=== PATIENT | female | born 1975 | race Caucasian/White ===

== ENCOUNTER 2023-04-12 12:01 | Outpatient (CLI) | payer MEDICARE, SELFPAY ==
[2023-04-12] VITALS (7 sets, daily range): BP systolic 100–131; BP diastolic 64–87; PULSE 55–102; RESP 18; TEMP 36.7; O2SAT 96–99; BMI 29.7
--- NOTE | 2023-04-12 12:02 | CT_ITS ---
APPROVED REPORT Manager Video: CLINICAL INDICATION Chest Pain TECHNIQUE Image Acquisition: A 128 slice MDCT scanner (SeamBLiSSa View) was used for data acquisition. A noncontrast coronary calcium scan was performed. A CT attenuation threshold of 130 Hounsfield units (HU) was used for the detection of calcium in contiguous voxels of 1 sq mm in area to be counted as individual lesions. Bolus tracking in the ascending aorta with a threshold of 180 HU was performed. Immediately afterwards, ECG synchronized cardiac CT was then performed from the cardiac base to apex using retrospective gating with ECG tube current modulation. A total of 85 mL of Isovue 370 mg/mL contrast medium was administered at 5 mL/sec followed by a saline flush using a biphasic injection protocol. A tube voltage of 120 KVp was used. The patient received the following medications prior to the cardiac CT. 75 mg of oral metoprolol 15 mg of oral ivabradine 0.8 mg of sublingual nitroglycerin The average heart rate at the time of acquisition was 64 bpm and regular. Image Reconstruction Transaxial images were reconstructed at 0.67 mm slide thickness. Data was reviewed interactively on an advanced workstation capable of 2 and 3-dimensional displays in all conventional reconstruction formats, including multiplanar reformations, maximum intensity projections, curved multiplanar reformations, and volume rendered reconstructions. When applicable, selected routine images describing the relevant coronary anatomy and pathology were saved and sent to PACS. Complications None Technical Quality Overall image quality was good. Coronary artery opacification was adequate. Total DLP (Dose-Length Product) is 1484.5 mGy-cm. The reported value represents the total of one or more individual components during the CT acquisition of this date and at this time, and as such, the same value may appear in more than one CT report depending on the interpreting/reporting physicians. COMPARISON None FINDINGS CT Coronary Calcium Scoring LMA (Left Main Artery) = 0 LAD (Left Anterior Descending) = 0 LCX (Left Coronary Circumflex) = 0 RCA (Right Coronary Artery) = 0 Total Calcium Score = 0 using the AJ-130 method. The interpretation of the calcium heart score is based on the following continuum*: 0 = no calcified plaque detected (risk of coronary artery disease is very low ??? less than 5%) 1-10 = calcium detected in extremely minimal levels (risk of coronary diseases is still low ??? less than 10%) 11-100 = mild levels of plaque detected with certainty (mild or minimal narrowing of heart arteries is likely) 101-400 = definite,at least moderate levels of plaque detected (relatively high risk of a heart attack within 3-5 years) >401-999 = extensive levels of plaque detected (high risk of heart attack, high levels of vascular disease are present, high likelihood of at least one significant coronary narrowing) *The calcium heart score quantifies the burden of coronary calcification/plaque in the coronary arteries. The calcium heart score is not able to evaluate the presence or burden of non-calcified (i.e. soft) plaque. There is no identifiable calcification in the aortic valve, mitral annulus or mitral valve, pericardium, or myocardium. Coronary CT Angiography The coronary arterial system is right dominant. Quantitative Stenosis Grading: Left Main (LM): The left main originates normally from the left sinus of Valsalva. The LM bifurcates into the left anterior descending artery and left circumflex artery. The LM is patent with no evidence of atherosclerosis. Left Anterior Descending (LAD) and Diagonal Branches: The LAD gives off 3 diagonal branches. The LAD and its branches are patent with no evidence of atherosclerosis. There is no evidence of LAD bridge. Left Circumflex (LCX) and Obtuse Marginals (OM): The LCX gives off 2 Obtuse Marginal (OM) branches. The LCX and its branches are patent with no evidence of atherosclerosis. Right Coronary Artery (RCA): The RCA originates normally from the right sinus of Valsalva. The RCA gives off a posterior descending artery (PDA) and posterolateral (PL) branches. The RCA and its branches are patent with no evidence of atherosclerosis. Non-Coronary Cardiac Findings: Analysis of the left ventricular (LV) structure and function was performed after 3-D reconstruction of the LV from axial images, with user-corrected automatic contouring for assessment of LV volumes and user-defined reconstruction from oblique planes for measurement of 3-D cardiac structure and function. LVEDV: 179 mL LVESV: 84 mL SV: 95 mL LVEF: 53% -The left ventricle is normal in size with normal left ventricular systolic function. -There is no left atrial appendage filling defect. Two right pulmonary veins and two left pulmonary veins drain normally into the left atrium. -No pericardial thickening or calcification. -Central and branch pulmonary arteries in the [id number] are unremarkable. -Thoracic aorta within the visualized thoracic aortic-branches in the [id number] is unremarkable. Extracardiac Structures No significant extra-cardiac findings. Note, however, that this study is focused on the cardiac findings. IMPRESSION -Absence of coronary calcification with an Agatston score = 0 using the AJ-130 method. -No evidence of significant flow-limiting atherosclerosis of the coronary arteries. -CAD-RADS 0. Management recommendations per ACC/AHA guidelines*, as clinically appropriate. *Recommendations: CAD RADS 0: Reassurance. Consider non-atherosclerotic causes of chest pain. CAD RADS 1: Consider non-atherosclerotic causes of chest pain. Consider preventive therapy and risk factor modification. CAD RADS 2: Consider non-atherosclerotic causes of chest pain. Consider preventive therapy and risk factor modification, particularly for patients with nonobstructive plaque in multiple segments. CAD RADS 3: Consider further functional testing. Consider symptom-guided anti-ischemic and preventive pharmacotherapy as well as risk factor modification per published guideline statements. CAD RADS 4A: Consider further functional testing or invasive coronary angiography with revascularization per published guideline statements. Consider symptom-guided anti-ischemic and preventive pharmacotherapy as well as risk factor modification per published guideline statements. CAD RADS 4B: Invasive coronary angiography recommended with revascularization per published guideline statements. Consider symptom-guided anti-ischemic and preventive pharmacotherapy as well as risk factor modification per published guideline statements. CAD RADS 5: Consider invasive angiography and/or viability assessment with revascularization per published guideline statements. Consider symptom-guided anti-ischemic and preventive pharmacotherapy as well as risk factor modification per published guideline statements. CRITICAL RESULT None COMMUNICATION Per this written report The coronary and cardiac findings of this CCTA were reviewed, reported, and signed by Ramses Parekh MD (Community Representative) Conclusion Electronically signed by : Namita Parekh MD 04/16/2023 11:29:02
[2023-04-12] MEDS: IVABRADINE HCL 7.5MG TABLET *IVABRADINE+METOPROLOL REGIMINE 15 MG PO (12:36)
[2023-04-12] MEDS: METOPROLOL TARTRATE 25MG TABLET *IVABRADINE+METOPROLOL REGIMINE 25 MG PO (12:37)
[2023-04-12] MEDS: METOPROLOL TARTRATE 50MG TABLET *IVABRADINE+METOPROLOL REGIMINE 50 MG PO (12:37)
[2023-04-12 12:43] LABS: Chloride 107 mmol/L (98-107); Potassium 4.1 mmoL/L (3.5-5.1); Sodium 137 mmol/L (136-145)
[2023-04-12 12:46] LABS: Blood Urea Nitrogen 13 mg/dl (7-17); Creatinine Clearance Estimated 159 mL/min (50-200); Estimated Glomerular Filt Rate 108 ml/min (>60); GFR (African American) 130 ML/MIN (>60)
[2023-04-12 12:47] LABS: Anion Gap 8.1 mEq/L (5-15); Carbon Dioxide 26 mmol/L (22.0-30.0); Glucose 92 mg/dl (74-100)
[2023-04-12 13:40] LABS: Urine Pregnancy, HCG Qual. Negative (Negative)
--- NOTE | 2023-04-12 13:50 | PC.NURSE ---
POST NITRO VITAL
[2023-04-12] MEDS: SODIUM CHLORIDE 0.9% 10ML SYR (RAD ONLY) 10 ML IV (13:57)
[2023-04-12] MEDS: IOPAMIDOL-370 (76%);100ML BOTTLE 85 ML IV (13:57)
[2023-04-12] MEDS: 0.9 % SODIUM CHLORIDE 50 ML VIAL IV (13:57)
[2023-04-12] MEDS: NITROGLYCERIN 0.4MG SL TABLET 0.800000000000000044 MG SL (14:13)
--- NOTE | 2023-04-12 14:29 | PC.NURSE ---
PT DOING WELL, VSS, NO C/O
--- NOTE | 2023-04-12 14:44 | PC.NURSE ---
PT DOING WELL, NO C/O, QUESTIONS OR CONCERNS. VSS.
== END 2023-04-12 14:48 | disposition home or self-care (01) ==
PROVIDERS: PCP Nurse Practitioner; Visit Provider Internal Medicine
DX: R07.89 Other chest pain (principal); Z13.6 Encounter for screening for cardiovascular disorders
CPT/HCPCS: 75571; 75574; 80048; 81025; 93306; Q9967

== ENCOUNTER 2023-04-26 15:04 | Outpatient (CLI) | payer OTHER, SELFPAY ==
--- NOTE | 2023-04-26 15:04 | CA_ITS ---
APPROVED REPORT EXAM: Comprehensive 2D, Doppler, and color-flow Echocardiogram Delimer: LUIS ANGEL Camacho, RVS Ht: 5 ft 7 in Wt: 198lbs BSA: 2.01 BP: 145/78 mmHg Indications: CP, S/p back surgery, HLD, Abn EKG, Asthma 2D Dimensions LA Volume 31.20 mL LA Volume Index 15.10 mL/m2 (M/F) 16-34 M-Mode Dimensions RVDd 2.07 cm (0.9-2.6) LA Diam 3.44 cm (1.9-4.0) LVDd 5.26 cm (3.5-5.7) LVDs 3.83 cm (3.5-5.7) IVSd 0.86 cm (0.6-1.1) PWd 0.75 cm (0.6-1.1) EF (Teich) 52.60% EPSs 0.54 cm FS 27.20% EDV (Teich) 133.00 mL TAPSE 2.52 (<1.7) ESV (Teich) 63.10 mL LV Diastology E Decel Time 143 (160-240 msec) E/A Ratio 1.65 MED A' 11.70 cm/s LAT A' 10.30 cm/s Aortic Valve AoV Peak Tobias. 139.0 (50-130 cm/s) AO Peak GR. 7.70 mmHg AO Mean GR. 3.80 (<5 mmHg) AO VTI 27.0 (18-25 cm) Mitral Valve MV A Velocity 53.0 (40-130 cm/s) E/A Ratio 1.65 Left Ventricle The left ventricle is normal size. The left ventricular systolic function is normal. The left ventricular ejection fraction is within the normal range. There is normal left ventricular wall thickness. There is normal LV segmental wall motion. The left ventricular diastolic function is normal. LVEF is 55%. Right Ventricle The right ventricle is normal size. The right ventricular systolic function is normal. Atria The left atrium size is normal. The right atrium size is normal. There is no Doppler evidence of interatrial shunt. Aortic Valve The aortic valve is normal in structure. The aortic valve is trileaflet. There is no aortic valvular stenosis. No aortic regurgitation is present. Mitral Valve The mitral valve is normal in structure. No evidence of mitral valve stenosis. Mild mitral regurgitation. Tricuspid Valve The tricuspid valve leaflets are thin and pliable. Mild tricuspid regurgitation. RVSP is normal. Pulmonic Valve The pulmonary valve is normal in structure. Trace pulmonic regurgitation. Great Vessels The aortic root is normal in size. The ascending aorta is normal in size. IVC is normal in size and collapses >50% with inspiration. Pericardium There is no pericardial effusion. Other Information Study Quality: Adequate Conclusion Normal biventricular systolic function. No significant valvular stenosis or regurgitation. Electronically signed by : Namita Parekh MD 04/30/2023 12:29:37
== END 2023-04-26 23:59 ==
LOC: RT 15:04
PROVIDERS: PCP Nurse Practitioner; Visit Provider Internal Medicine
DX: R07.89 Other chest pain (principal)
CPT/HCPCS: 93306

== ENCOUNTER 2023-05-09 12:18 | Emergency (ER) | payer OTHER, SELFPAY ==
[2023-05-09 12:19] VITALS: BP 151/105; PULSE 83; RESP 13; TEMP 36.7; O2SAT 95; BMI 29.7
--- NOTE | 2023-05-09 12:28 | PC.NURSE ---
DR SHELL AT BEDSIDE
[2023-05-09 12:30] VITALS: BP 155/110; PULSE 74; PULSE 75; RESP 20; O2SAT 95; O2SAT 96
--- NOTE | 2023-05-09 12:32 | [facility].EDGENADL ---
Discharge Plan Disposition Patient Disposition: Home, Self-Care Prescriptions Prescriptions: New ondansetron 4 mg tablet,disintegrating 4 mg PO Q8H PRN (Reason: nausea and vomiting) 4 Days Qty: 12 0RF No Action meloxicam 15 mg tablet 15 mg PO DAILY Patient Comments: TAKE 1 TABLET BY MOUTH DAILY levocetirizine 5 mg tablet 5 mg PO DAILY Patient Comments: TAKE 1 TABLET BY MOUTH EVERY DAY rosuvastatin 40 mg tablet 40 mg PO HS progesterone micronized 100 mg capsule 1 mg PO DAILY lorazepam 2 mg tablet 2 mg PO TID Patient Comments: TAKE 1/2 TO 1 TABLET BY MOUTH DAILY NEEDED budesonide-formoterol [Symbicort] 160-4.5 mcg/actuation HFA aerosol inhaler 1 inh inhalation DAILY Patient Comments: INHALE 2 PUFFS BY MOUTH TWICE DAILY albuterol sulfate [Ventolin HFA] 90 mcg/actuation HFA aerosol inhaler 1 inh inhalation NEEDED PRN (Reason: soa) coQ10 (ubiquinol) [Qunol Agustín CoQ10] 100 mg capsule 100 mg PO DAILY magnesium, potassium aspartate 250-250 mg capsule 1 cap PO DAILY Osteo Bi-Flex Triple Strength 750 mg-644 mg- 30 mg-1 mg tablet 1 tab PO BID vitamin B complex [B Complex-Vitamin B12] Tablet 1 tab PO DAILY taurine 1,000 mg capsule 1,000 mg PO DAILY Referrals Follow up/Referrals: Michelle Lane APRN [Primary Care Provider] - See instructions Activity Restrictions/Add. Instructions Additional Instructions/Restrictions: At this time it was felt you are safe to be discharged home. If new or worsening symptoms please do not hesitate to return the emergency department. If symptoms persist please follow-up with your family doctor as you are able. Please take your medication as prescribed. Clinical Impressions Clinical Impression: Acute viral syndrome Instructions Patient Instructions: DI for Diarrhea and Traveler's Diarrhea -- Adult, DI for Diarrhea and Traveler's Diarrhea -- Child, DI for Nausea -- Adult, DI for Nausea -- Child Discharge ED Provider: Luis Manuel Caba General Adult HPI General Chief complaint: Nausea/Vomiting/Diarrhea Stated complaint: vomiting, diarrea, abd pain Time Seen by Provider: 05/09/23 12:21 Mode of Arrival: Ambulatory Source of Information: Patient Limitations: No Limitations Description of Symptoms (Recalled from ER Triage Doc. by RN): c/o n/v/d since Saturday night with pain the lower left abdomen. History of Present Illness HPI narrative: Patient is a 48-year-old female on chronic meloxicam therapy who presents emergency department for evaluation of abdominal pain, vomiting, diarrhea. Onset was acute, since Saturday night, positive sick contact with similar symptoms that have resolved. When patient eats she has crampy abdominal pain on the left side, vomiting diarrhea or nonbloody. Due to persistent symptoms she presents here for continued evaluation. No current pain at rest. Related Data Home Medications Medication Instructions Recorded Confirmed albuterol sulfate 90 mcg/actuation 1 inh inhalation NEEDED PRN soa 03/26/23 04/18/23 aerosol inhaler (Ventolin HFA) budesonide-formoterol HFA 160 1 inh inhalation DAILY 03/26/23 04/18/23 mcg-4.5 mcg/actuation aerosol inhaler (Symbicort) coQ10 (ubiquinol) 100 mg capsule 100 mg PO DAILY 03/26/23 04/18/23 (Qunol Agustín CoQ10) glucosamine 750 ob-kxwqssuymhn-sqi 1 tab PO BID 03/26/23 04/18/23 no1 644 mg-C 30 mg-richie 1 mg tablet (Osteo Bi-Flex Triple Strength) levocetirizine 5 mg tablet 5 mg PO DAILY 03/26/23 04/18/23 lorazepam 2 mg tablet 2 mg PO TID 03/26/23 04/18/23 magnesium aspartate-potassium 1 cap PO DAILY 03/26/23 04/18/23 aspartate 250 mg-250 mg capsule meloxicam 15 mg tablet 15 mg PO DAILY 03/26/23 04/18/23 progesterone micronized 100 mg 1 mg PO DAILY 03/26/23 04/18/23 capsule rosuvastatin 40 mg tablet 40 mg PO HS 03/26/23 04/18/23 taurine 1,000 mg capsule 1,000 mg PO DAILY 03/26/23 04/18/23 vitamin B complex (B 1 tab PO DAILY 03/26/23 04/18/23 Complex-Vitamin B12 tablet) Previous Rx's Medication Instructions Recorded ondansetron 4 mg disintegrating 4 mg PO Q8H PRN nausea and 05/09/23 tablet vomiting 4 days #12 tabs Allergies Allergy/AdvReac Type Severity Reaction Status Date / Time No Known Allergies Allergy Verified 04/18/23 09:58 [facility] Disclaimer: The information contained in this section may have been updated after the patient was seen, as this information can be updated by other users. Medical History Asthma Hyperlipidemia Surgical History History of back surgery History of knee surgery History of shoulder surgery Family History Other No significant family history Social History Smoking Status: Never smoker alcohol intake: never current occupational status: other Travel in the last 8 weeks: None ROS Obtained: Yes Systems reviewed as appropriate & no additional complaints except as documented Physical Exam General General appearance: alert and in no apparent distress Head Head exam: atraumatic and normocephalic Eye Eye exam: Present PERRL ENT ENT exam: Present mucous membranes moist Neck Neck exam: Present normal inspection Chest Chest inspection: Present normal inspection and symmetric chest wall rise Respiratory Respiratory exam: Present normal lung sounds bilaterally; Absent respiratory distress Cardiovascular Cardiovascular exam: Present regular rate and normal rhythm Abdominal Exam Abdominal exam: Present soft; Absent tenderness, guarding or rebound Extremities Exam Extremities exam: Present normal inspection Neurological Exam Neurological exam: Present alert Psychiatric Psychiatric exam: Present normal affect Skin Skin exam: Present warm and dry Medical Decision Making Martin Inquiry Pt receiving controlled substance: No Vital Signs: 05/09/23 12:19 05/09/23 12:30 05/09/23 12:30 Temperature 98.1 F Temperature Source Oral Pulse Rate 74 75 Pulse Rate [Left Radial] 83 Respiratory Rate 13 20 Blood Pressure 155/110 H Blood Pressure [Right Arm] 151/105 H Blood Pressure Mean 115 Blood Pressure Mean [Right Arm] 120 Blood Pressure Source [Right Arm] Automatic Cuff Blood Pressure Position [Right Arm] Standing 02 Sat by Pulse Oximetry 95 96 95 Oxygen Delivery Method Room Air 05/09/23 13:00 Temperature Temperature Source Pulse Rate 61 Pulse Rate [Left Radial] Respiratory Rate 20 Blood Pressure 134/83 Blood Pressure [Right Arm] Blood Pressure Mean 100 Blood Pressure Mean [Right Arm] Blood Pressure Source [Right Arm] Blood Pressure Position [Right Arm] 02 Sat by Pulse Oximetry 95 Oxygen Delivery Method Lab Data Lab Results 05/09/23 12:28: WBC 5.7, RBC 5.87 H, Hgb 17.3 H, Hct 52.3 H, MCV 89.2, MCH 29.6, MCHC 33.1, RDW 13.6, Plt Count 282, MPV 8.3, Neut % (Auto) 62.2, Lymph % (Auto) 22.6, Meagher % (Auto) 9.5 H, Eos % (Auto) 3.1, Baso % (Auto) 2.7 H, Neut # (Auto) 3.5, Lymph # (Auto) 1.3, Meagher # (Auto) 0.5, Eos # (Auto) 0.2, Baso # (Auto) 0.2, Sodium 139, Potassium 3.6, Chloride 105, Carbon Dioxide 27, Anion Gap 10.6, BUN 20 H, Creatinine 0.70, Estimated Creat Clear 137, Estimated GFR 90, Est GFR ( Amer) 109, Glucose 96, Calcium 9.1, Total Bilirubin 0.4, AST 41 H, ALT 38, Alkaline Phosphatase 73, Total Protein 7.4, Albumin 4.6, Globulin 2.8, Albumin/Globulin Ratio 1.6, Lipase 109, Serum HCG, Qual Negative 05/09/23 12:31: SARS-CoV-2 (PCR) Not detected, Influenza A Untype (PCR) Not detected, Influenza Type B (PCR) Not detected 05/09/23 12:35: Urine Color Yellow, Urine Appearance Sl cloudy, Urine pH 6.0, Ur Specific Milam 1.025, Urine Protein Trace, Urine Glucose (UA) Negative, Urine Ketones 1+, Urine Blood 1+, Urine Nitrate Negative, Urine Bilirubin 1+ A, Urine Urobilinogen 0.2, Ur Leukocyte Esterase Negative, Urine RBC Occasional, Urine WBC 3-5, Ur Squamous Epith Cells 10-20, Urine Bacteria 1+, Urine Mucus 1+ 05/09/23 12:28 05/09/23 12:28 Orders (Tests/Meds): ED MEDICATIONS Generic Name Dose Route Start Last Admin Trade Name Freq PRN Reason Stop Dose Admin Sodium Chloride 10 ml 05/09/23 12:29 Sodium Chloride 0.9% 10ml Flush Syringe IV 06/08/23 12:28 NEEDED PRN Maintain IV Site Discontinued Medications Generic Name Dose Route Start Last Admin Trade Name Freq PRN Reason Stop Dose Admin Belladonna Alkaloids 60 ml 05/09/23 12:32 05/09/23 12:40 Belladonna Alkaloids 60 Ml Ml PO 05/09/23 12:33 Not Given ONCE ONE Lactated Ringer's 1,000 mls @ 999 mls/hr 05/09/23 12:31 05/09/23 12:38 Lactated Ringer's 1000 Ml Bag IV 05/09/23 13:31 999 mls/hr .Q1H1M ONE Administration Ondansetron HCl 4 mg 05/09/23 12:31 05/09/23 12:38 Ondansetron 4mg/2ml Vial IV 05/09/23 12:32 4 mg ONCE ONE Administration ORDERS Category Date Time Status Complete Blood Count Auto Diff Stat Lab 05/09/23 12:28 Completed Comprehensive Metabolic Panel Stat Lab 05/09/23 12:28 Completed HCG Qualitative, Serum Stat Lab 05/09/23 12:28 Completed Lipase Stat Lab 05/09/23 12:28 Completed Rapid PCR Covid and Flu A/B Stat Lab 05/09/23 12:31 Completed Urinalysis and Microscopic Stat Lab 05/09/23 12:35 Completed Medical Decision Narrative: In summary patient is a 48-year-old female past medical history described above who presents emergency department for evaluation of intermittent abdominal pain, nausea, vomiting, diarrhea. Patient is hemodynamically stable nontoxic-appearing upon arrival, afebrile. Differential diagnosis includes viral syndrome, pancreatitis, among others. Patient is on chronic NSAID therapy so peptic ulcer disease is a consideration. Patient is nontender and hemodynamics are normal so no concern for perforated ulcer or diverticulitis therefore workup with imaging was considered but will be deferred. Workup will be conducted however with hematologic labs, urinalysis, viral swab. Initial inventions include crystalloid bolus, Zofran, GI cocktail. Initial workup reviewed by me, hematologic labs are nonactionable, patient is non, urinalysis interpreted by me and not consistent with infection, viral swab negative. Upon repeat evaluation patient had improvement of symptoms, tolerating p.o. at bedside. Given this patient is appropriate for discharge at this time. Critical Care Critical Care Time Critical Care Time: No
[2023-05-09 12:36] LABS: Basophils # 0.2 K/mm3 (0-0.2); Basophils % 2.7 % (0.1-2.0); Eosinophils # 0.2 K/mm3 (0.0-0.4); Eosinophils % 3.1 % (0.1-12.0); Hematocrit 52.3 % (37.0-47.0); Hemoglobin 17.3 g/dL (12.2-16.2); Lymphocytes # 1.3 K/mm3 (0.7-4.5); Lymphocytes % 22.6 % (10-50); Mean Corpuscular HGB Conc 33.1 g/dL (31.8-35.4); Mean Corpuscular Hemoglobin 29.6 pg (27.0-31.2); Mean Corpuscular Volume 89.2 fl (81-99); Mean Platelet Volume 8.3 fl (7.4-10.4); Monocytes # 0.5 K/mm3 (0.1-1.0); Monocytes % 9.5 % (1.7-9.3); Neutrophils # 3.5 K/mm3 (1.8-7.8); Neutrophils % 62.2 % (37.0-80.0); Platelet Count 282 K/mm3 (142-424); Red Blood Count 5.87 M/mm3 (4.20-5.40); Red Cell Distribution Width 13.6 % (11.5-17.5); White Blood Count 5.7 K/mm3 (4.8-10.8)
[2023-05-09 12:36] LABS: Coronavirus 19, PCR Not Detected (NotDetected); Influenza A, PCR Not Detected (NotDetected); Influenza B, PCR Not Detected (NotDetected)
[2023-05-09] MEDS: ONDANSETRON 4MG/2ML VIAL 4 MG IV (12:38)
[2023-05-09] MEDS: LACTATED RINGERS 1000ML 1,000 ML 999 ML IV (12:38)
[2023-05-09 12:40] LABS: Microscopic, Urine URINE MICROSCOPIC (MICROSCOPIC)
--- NOTE | 2023-05-09 12:41 | PC.NURSE ---
pt states that she does not want the Gi cocktail the lidocaine in the medicine makes her nervous and will have more anxiety and feels at this time she doesnt need it. aware Call light at pt bs
[2023-05-09 12:42] LABS: Appearance,Urine SL CLOUDY (Clear); Blood, Urine 1+ (Negative); Color,Urine YELLOW (Yellow); Glucose,Urine (UA) Negative (Negative); Ketones,Urine 1+ (Negative); Leukocyte Esterase,Urine Negative (Negative); Nitrate,Urine Negative (Negative); Protein,Urine TRACE (Negative); Specific Gravity, Urine 1.025 (1.005-1.030); Urobilinogen,Urine 0.2 EU/dl (0.2)
[2023-05-09 12:46] LABS: Bilirubin,Urine 1+ (Negative)
[2023-05-09 12:47] LABS: HCG Qualitative, Serum Negative (Negative)
[2023-05-09 12:48] LABS: Alanine Aminotransferase 38 U/L (12-78); Albumin Level 4.6 g/dl (3.5-5.0); Albumin/Globulin Ratio 1.6 (1.1-1.8); Alkaline Phosphatase 73 U/L (38-126); Anion Gap 10.6 mEq/L (5-15); Aspartate Amino Transferase 41 U/L (14-36); Bilirubin,Total 0.4 mg/dl (0.2-1.3); Blood Urea Nitrogen 20 mg/dl (7-17); Calcium 9.1 mg/dl (8.4-10.2); Carbon Dioxide 27 mmol/L (22.0-30.0); Chloride 105 mmol/L (98-107); Creatinine Clearance Estimated 137 mL/min (50-200); Estimated Glomerular Filt Rate 90 ml/min (>60); GFR (African American) 109 ML/MIN (>60); Globulin 2.8 g/dL (1.3-3.2); Glucose 96 mg/dl (74-100); Lipase 109 U/L (23-300); Potassium 3.6 mmoL/L (3.5-5.1); Sodium 139 mmol/L (136-145); Total Protein,Serum 7.4 g/dl (6.3-8.2)
[2023-05-09 12:55] LABS: Bacteria,Urine 1+ /lpf; Mucus,Urine 1+ /lpf; RBC,Urine Occasional #/hpf (0-3)
[2023-05-09 13:00] VITALS: BP 134/83; PULSE 61; RESP 20; O2SAT 95
[2023-05-09 13:48] VITALS: BP 135/78; PULSE 65; RESP 18; TEMP 36.6; O2SAT 98
== END 2023-05-09 13:49 | disposition home or self-care (01) ==
PROVIDERS: Emergency Provider Emergency Medicine; PCP Nurse Practitioner
DX: R10.32 Left lower quadrant pain (principal); R11.2 Nausea with vomiting, unspecified; R19.7 Diarrhea, unspecified; B34.9 Viral infection, unspecified; J45.909 Unspecified asthma, uncomplicated; E78.5 Hyperlipidemia, unspecified
CPT/HCPCS: 80053; 81001; 83690; 84703; 85025; 87636; 96361; 96374; 99285; J2405

== ENCOUNTER 2023-12-10 14:06 | Outpatient (CLI) | payer OTHER, SELFPAY ==
[2023-12-10 14:38] LABS: Basophils # 0.1 K/mm3 (0-0.2); Basophils % 1.2 % (0.1-2.0); Eosinophils # 0.3 K/mm3 (0.0-0.4); Hematocrit 40.7 % (37.0-47.0); Hemoglobin 13.4 g/dL (12.2-16.2); Lymphocytes # 2.1 K/mm3 (0.7-4.5); Lymphocytes % 29.2 % (10-50); Mean Corpuscular HGB Conc 32.9 g/dL (31.8-35.4); Mean Corpuscular Hemoglobin 30.4 pg (27.0-31.2); Mean Corpuscular Volume 92.4 fl (81-99); Mean Platelet Volume 8.5 fl (7.4-10.4); Monocytes # 0.5 K/mm3 (0.1-1.0); Monocytes % 6.5 % (1.7-9.3); Neutrophils # 4.3 K/mm3 (1.8-7.8); Platelet Count 212 K/mm3 (142-424); Red Cell Distribution Width 13.8 % (11.5-17.5); White Blood Count 7.2 K/mm3 (4.8-10.8)
[2023-12-10 15:05] LABS: Alanine Aminotransferase 24 U/L (12-78); Alkaline Phosphatase 48 U/L (38-126); Aspartate Amino Transferase 28 U/L (14-36); Bilirubin,Direct 0.3 mg/dl (0.0-0.4); Bilirubin,Indirect 0.2 mg/dL (0.0-0.9); Bilirubin,Total 0.5 mg/dl (0.2-1.3); Bilirubin,Unconjugated 0.2 mg/dL (0.0-1.1); Blood Urea Nitrogen 16 mg/dl (7-17); Calcium 9.4 mg/dl (8.4-10.2); Chloride 107 mmol/L (98-107); Chol/HDL Ratio 2.3 (1-3.5); Cholesterol 115 mg/dl (140-200); Estimated Glomerular Filt Rate 108 ml/min (>60); GFR (African American) 130 ML/MIN (>60); Glucose 80 mg/dl (74-100); HDL Cholesterol 49 mg/dl (40-60); Potassium 4.1 mmoL/L (3.5-5.1); Sodium 136 mmol/L (136-145); Total Protein,Serum 6.4 g/dl (6.3-8.2); Triglycerides 47 mg/dl (30-150); VLDL Cholesterol 9 mg/dL (0-40)
[2023-12-10 15:10] LABS: Albumin Level 4.3 g/dl (3.5-5.0); Anion Gap 7.1 mEq/L (5-15); Carbon Dioxide 26 mmol/L (22.0-30.0)
[2023-12-10 15:19] LABS: Direct LDL Cholesterol 49.01 mg/dL (100-129)
[2023-12-10 15:20] LABS: Troponin I < 0.01 ng/ml (0.00-0.034)
[2023-12-10 15:38] LABS: Thyroid Stimulating Hormone 0.23 uIU/mL (0.465-4.68)
== END 2023-12-10 23:59 | disposition home or self-care (01) ==
LOC: LAB 14:06
PROVIDERS: PCP Nurse Practitioner; Visit Provider Nurse Practitioner Family
DX: E78.2 Mixed hyperlipidemia (principal); J45.909 Unspecified asthma, uncomplicated; R07.89 Other chest pain
CPT/HCPCS: 80048; 80061; 80076; 84443; 84484; 85025